=== PATIENT | female | born 1980 ===

== ENCOUNTER 2021-11-28 09:30 | Inpatient (IN) | payer OTHER ==
[~2021-11-28] VITALS: Ht 165.1 cm; Wt 73.0 kg
[2021-12-02] MEDS ORDERED: METRONIDAZOLE45 G1 (10:17)
[2021-12-02] MEDS ORDERED: PEPTO-BISM262 MG/15 (10:17)
[2021-12-02] MEDS ORDERED: QUETIAPINE FUMA50 MG (10:17)
[2021-12-02] MEDS ORDERED: FOLIC ACID0.4 MG (10:17)
[2021-12-04] MEDS ORDERED: IBU600 MG PO (07:37)
[2021-12-04] MEDS ORDERED: NEURONTIN300 MG PO (07:38)
[2021-12-04] MEDS ORDERED: LEVSIN/SL0.125 MG SL (07:39)
[2021-12-04] MEDS ORDERED: CIPRO500 MG PO (07:41)
== END 2021-12-04 09:33 | disposition home or self-care (01) | DRG 742 ==
LOC: O/R 12-02 06:47 → OB/GYN 12-02 06:47 → EDBD 12-02 09:30 → OB/GYN 12-02 09:30
PROVIDERS: ADMIT Obstetrics & Gynecology Gynecology; ATTEND Obstetrics & Gynecology Gynecology
PROC: 0UT70ZZ Resection of Bilateral Fallopian Tubes, Open Approach (ICD-10-PCS; 2021-12-02)
PROC: 0UT20ZZ Resection of Bilateral Ovaries, Open Approach (ICD-10-PCS; 2021-12-02)
PROC: 0TQB0ZZ Repair Bladder, Open Approach (ICD-10-PCS; 2021-12-02)
PROC: 0UT90ZZ Resection of Uterus, Open Approach (ICD-10-PCS; principal; 2021-12-02 11:45)
DX: D25.1 Intramural leiomyoma of uterus (principal); S37.29XA Other injury of bladder, initial encounter; N99.72 Accidental puncture and laceration of a genitourinary system organ or structure during other procedure; Z20.822 Contact with and (suspected) exposure to COVID-19

== ENCOUNTER 2021-12-09 08:19 | Outpatient (CLI) | payer OTHER ==
[~2021-12-09 08:19] MED LIST: CIPRO500 MG PO; FOLIC ACID0.4 MG; IBU600 MG PO; LEVSIN/SL0.125 MG SL; METRONIDAZOLE45 G1; NEURONTIN300 MG PO; PEPTO-BISM262 MG/15; QUETIAPINE FUMA50 MG
== END 2021-12-09 08:27 | disposition home or self-care (01) ==
LOC: RX STUDY 08:19
PROVIDERS: ATTEND Surgery
DX: N32.89 Other specified disorders of bladder (principal)
CPT/HCPCS: 51605; 74450; Q9965